=== PATIENT | female | born 1925 | race Caucasian/White ===

== ENCOUNTER 2016-08-30 11:43 | Emergency (ER) | payer MEDICARE, MEDICAID ==
[~2016-08-30] VITALS: Ht 154.9 cm; Wt 65.8 kg
[2016-08-30] MEDS ORDERED: TDAP [DIPH/PERTUSSIS/TET] 0.5 ML VIAL IM ONE ×2 (12:21→12:30)
[2016-08-30 12:38] VITALS: BP 138/82
== END 2016-08-30 12:39 | disposition home or self-care (01) ==
LOC: ER 11:46
DX: S61.213A Laceration without foreign body of left middle finger without damage to nail, initial encounter (principal); E11.9 Type 2 diabetes mellitus without complications; I10 Essential (primary) hypertension; W26.0XXA Contact with knife, initial encounter; Y93.89 Activity, other specified; Y99.8 Other external cause status; Y92.090 Kitchen in other non-institutional residence as the place of occurrence of the external cause
CPT/HCPCS: 90715; A4606; Z7610

== ENCOUNTER 2016-09-26 13:11 | Inpatient (IN) | payer MEDICARE, MEDICAID ==
[~2016-09-26] VITALS: Ht 157.5 cm; Wt 71.7 kg
--- NOTE | 2016-09-26 13:11 | NUR ---
BBRA FROM HOME FOR CP BURNING X 2 DAYS ON AND OFF. NAD NOTED. PT NIGERIAN SPEAKER, AAO X4, AMB WITH STEADY GAIT. PT PLACED ON O2, SATTING WELL AT 98%. PT PLACED IN GOWN AND MONITOR. EKG AT BEDSIDE. AT BEDSIDE FOR EVAL.
--- NOTE | 2016-09-26 13:21 | NUR ---
CALLED NURSING SUP. FOR TELE BED
[2016-09-26 13:31] LABS: BASOPHILS # (AUTO) 0.4 /CMM (0.0-0.2); BASOPHILS % (AUTO) 2.6 % (0.0-2.0); EOSINOPHILS # (AUTO) 0.2 /CMM (0.0-0.7); HEMATOCRIT 34 % (33-45); HEMOGLOBIN 11.3 g/dL (11.5-14.8); LYMPHOCYTES # (AUTO) 1.9 /CMM (0.8-4.8); LYMPHOCYTES % (AUTO) 11.1 % (20.0-44.0); MEAN CORPUSCULAR HEMOGLOBIN 24 PG (26.0-33.0); MEAN CORPUSCULAR HGB CONC 33 g/dl (31.0-36.0); MEAN CORPUSCULAR VOLUME 73 fL (82-100); MONOCYTES # (AUTO) 1.1 /CMM (0.1-1.30); MONOCYTES % (AUTO) 6.6 % (2.0-12.0); NEUTROPHILS # (AUTO) 13.2 /CMM (1.8-8.9); NEUTROPHILS % (AUTO) 78.7 % (43.0-81.0); RDW COEFFICIENT OF VARIATION 24.4 (11.5-15.0); RED BLOOD CELL COUNT(AUTO) 4.69 MIL/uL (4.0-5.2); WHITE BLOOD COUNT (AUTO) 16.8 K/uL (4.3-11.0)
[2016-09-26 13:39] LABS: CALCIUM, SERUM 8.4 mg/dL (8.5-10.1); CARBON DIOXIDE 25 mmol/L (21-32); CHLORIDE 91 mmol/L (98-107); CREATININE 1.1 mg/dL (0.6-1.3); GLUCOSE 136 mg/dL (74-106); POTASSIUM 4.5 mmol/L (3.5-5.1); SODIUM SERUM 123 mmol/L (136-145); UREA NITROGEN, BLOOD 22 mg/dL (7-18)
[2016-09-26 13:43] LABS: INR 1.05 (0.87-1.13); PROTHROMBIN TIME 10.9 SECS (9.5-12.7)
[2016-09-26 13:47] LABS: TROPONIN I < 0.017 ng/mL (0.00-0.056)
[2016-09-26 13:48] LABS: PLATELET COUNT (AUTO) 1233 /CMM (150-450)
[2016-09-26] MEDS ORDERED: IV NS 0.9% 1,000 ML IV ONE (14:20)
[2016-09-26] MEDS ORDERED: CEFTRIAXONE 1GM BAG (ER ONLY) 50 ML IV ONE ×2 (14:28→14:30)
[2016-09-26] MEDS ORDERED: methylPREDNISolone SOD SUCC 125 MG/2ML VIAL ONE (14:28)
[2016-09-26] MEDS ORDERED: IV NS 0.9% 1,000 ML ONE (14:28)
[2016-09-26] MEDS ORDERED: IV SET PRIMARY 1 EA INFUS.SET MC ONE (14:28)
[2016-09-26] MEDS ORDERED: IV SET PRIMARY PUMP SET 1 EA INFUS.SET MC ONE ×2 (14:29→14:59)
[2016-09-26] MEDS ORDERED: methylPREDNISolone SOD SUCC 125 MG/2ML VIAL IV ONE (14:30)
[2016-09-26] MEDS ORDERED: IPRATROPIUM NEB FS 0.5 MG/2.5 ML AMPUL.NEB NEB ONE (14:30)
[2016-09-26] MEDS ORDERED: ALBUTEROL FS 2.5 MG/3 ML VIAL.NEB NEB ONE (14:30)
[2016-09-26] MEDS ORDERED: FUROSEMIDE 40 MG/4 ML VIAL IV ONE (14:30)
[2016-09-26] MEDS ORDERED: AZITHROMYCIN 500 MG in IV D5W 250 ML IV ONE (14:30)
[2016-09-26] MEDS ORDERED: FUROSEMIDE 40 MG/4 ML VIAL ONE (14:35)
--- NOTE | 2016-09-26 14:37 | NUR ---
CALLED RT FOR BREATHING TREATMENT
[2016-09-26 14:39] LABS: LYMPHOCYTES % (MANUAL) 6 % (16-48); MONOCYTES % (MANUAL) 7 % (0-11.0); NEUTROPHILS % (MANUAL) 87 (42-76)
[2016-09-26 14:40] LABS: ANISOCYTOSIS 1+
[2016-09-26 14:41] LABS: PLATELET ESTIMATE INCREASED
[2016-09-26] MEDS ORDERED: ALBUTEROL FS 2.5 MG/3 ML VIAL.NEB ONE (14:41)
[2016-09-26] MEDS ORDERED: IPRATROPIUM NEB FS 0.5 MG/2.5 ML AMPUL.NEB ONE (14:41)
[2016-09-26] MEDS ORDERED: EZET10TA27 PO (14:43)
[2016-09-26] MEDS ORDERED: OLME40TA3 PO (14:43)
[2016-09-26] MEDS ORDERED: FERR325T28 PO (14:43)
[2016-09-26] MEDS ORDERED: ACET-868 PO (14:43)
[2016-09-26] MEDS ORDERED: DULO60CA45 PO (14:43)
[2016-09-26] MEDS ORDERED: ASPI-991 PO (14:43)
[2016-09-26] MEDS ORDERED: [UNRECOGNIZED DRUG - CODE] PO (14:43)
[2016-09-26] MEDS ORDERED: HYDR500C2 PO (14:43)
[2016-09-26] MEDS ORDERED: BUDE10.2 IH (14:43)
[2016-09-26] MEDS ORDERED: SITA1TAB2 PO (14:43)
[2016-09-26] MEDS ORDERED: LABE200T PO (14:43)
[2016-09-26] MEDS ORDERED: AZEL137S7 NS (14:43)
[2016-09-26] MEDS ORDERED: ISRA5CAP PO (14:43)
[2016-09-26] MEDS ORDERED: ZOLP10TA2 PO (14:43)
--- NOTE | 2016-09-26 15:26 | NUR ---
REPORT GIVEN TO ROSA JAMISON FOR JOSE
[2016-09-26] MEDS ORDERED: IV D5W 1,000 ML IV PRN (15:59)
[2016-09-26 16:00] VITALS: BP 160/93
[2016-09-26] MEDS ORDERED: ZOLPIDEM TARTRATE 5 MG TABLET PO PRN (16:00)
[2016-09-26] MEDS ORDERED: HYDROCODONE/APAP 5/325MG 1 EACH TABLET PO PRN (16:00)
[2016-09-26] MEDS ORDERED: ENOXAPARIN SODIUM 40 MG/0.4 ML DISP.SYRIN SQ SCH (16:00)
[2016-09-26] MEDS ORDERED: ONDANSETRON HCL/PF 4 MG/2 ML VIAL IVP PRN (16:00)
[2016-09-26] MEDS ORDERED: MAG HYDROX/AL HYDROX/SIMETH 30 ML UDC PO PRN (16:00)
[2016-09-26] MEDS ORDERED: MAGNESIUM HYDROXIDE 30 ML UDC PO PRN (16:00)
[2016-09-26] MEDS ORDERED: ACETAMINOPHEN 325 MG TABLET PO PRN (16:00)
[2016-09-26] MEDS ORDERED: MORPHINE SULFATE INJ 2 MG/ML DISP.SYRIN IV PRN (16:00)
[2016-09-26] MEDS ORDERED: Z GUARD REMEDY 2 OZ OINT TP PRN (16:00)
[2016-09-26 16:30] VITALS: BP 160/93
[2016-09-26] MEDS ORDERED: GUAIFENESIN/D-METHORPHAN HB 5 ML UDC PO PRN (16:30)
[2016-09-26] MEDS ORDERED: ALBUTEROL FS 2.5 MG/3 ML VIAL.NEB NEB PRN (16:30)
[2016-09-26] MEDS ORDERED: AZITHROMYCIN 250 MG TABLET PO SCH (16:30)
--- NOTE | 2016-09-26 16:30 | NUR ---
ADMITTED FROM ER. PT. AWAKE, ALERT AND ORIENTED X4. COMPLAINTS OF CHEST WALL PAIN AND SOB. O2 @ 3L VIA NC. SAO2 95%. CRACKLES AND WHEEZING IN LUNG. APPLIED TELE MONITOR. SR & PVCS. CHECKED BLOOD SUGAR. IT WAS 168. SKIN IS INTACT. BSC AT THE BEDSIDE. GIVEN UNIT ORIENTATION TO THE PT AND FAMILY. SIDE RAILS UP. CALL LIGHT WITHIN REACH. MONITOR CLOSELY. Addendum: 09/26/16 at 1750 by DANILO FREEDMAN RN NOTED BLE EDEMA.
[2016-09-26] MEDS ORDERED: ENOXAPARIN SODIUM 30 MG/0.3 ML DISP.SYRIN SQ SCH ×2 (17:00)
--- NOTE | 2016-09-26 17:00 | NUR ---
COLLECTED URINE SAMPLE. CALLED LAB.
[2016-09-26] MEDS: METHOCARBAMOL (750MG) 750 MG TABLET PO SCH (17:44)
[2016-09-26] MEDS: FERROUS SULFATE (325 MG) 325 MG/TAB TABLET PO SCH (17:44)
[2016-09-26] MEDS: LABETALOL HCL (100MG) 100 MG TABLET PO SCH (17:46)
--- NOTE | 2016-09-26 18:30 | NUR ---
CLOSING SHIFT PT. AWAKE, ALERT AND ORIENTED X4. COMPLAINTS OF SOB. O2@ 3L VIA NC. SR& PVC ON THE MONITOR. BSC WITH ASSIST. URINE OUTPUT WAS 1000CC SINCE ADMISSION. HIGH BP, TOOK MEDS. HOB. SIDE RAILS UP. CALL LIGHT WITHIN REACH. MONITOR CLOSELY.
[2016-09-26 18:41] LABS: APPEARANCE,URINE CLEAR (CLEAR); BILIRUBIN,URINE NEGATIVE (NEGATIVE); BLOOD, URINE NEGATIVE Ery/uL (NEGATIVE); KETONES,URINE NEGATIVE (NEGATIVE); LEUKOCYTE ESTERASE ,URINE NEGATIVE (NEGATIVE); NITRITE, URINE NEGATIVE (NEGATIVE); PH,URINE 5.5 (5.0-8.0); PROTEIN,URINE NEGATIVE (NEGATIVE); UGLUCOSE NEGATIVE (NEGATIVE); UROBILINOGEN,URINE 0.2 EU/dL (0.2)
[2016-09-26 18:46] LABS: URINE SODIUM, RANDOM 67 mmol/l (40-220)
[2016-09-26 18:55] LABS: COLOR,URINE STRAW (YELLOW)
--- NOTE | 2016-09-26 19:00 | NUR ---
RN NOTE RECEIVED REPORT. PT AAOX3, EMIRATI SPEAKING. NO S/S OF RESPIRATORY DISTRESS AT THIS TIME. ON NC O2 @ 4L. DENIES SOB/CP. TELE SHOWING SR WITH BBB AND PVC'S. R AC INTACT AND PATENT. DTR AT BEDSIDE. CALL LIGHT IN REACH, WILL CONT TO MONITOR.
[2016-09-26 19:22] LABS: ALBUMIN 3.3 g/dL (3.4-5.0); BILIRUBIN,DIRECT 0.2 mg/dL (0.0-0.2); BILIRUBIN,TOTAL 0.9 mg/dL (0.2-1.0)
--- NOTE | 2016-09-26 19:30 | NUR ---
SPOKE WITH DR. KATELYN HERRERA REGARDING BONE MARROW BX FOR TOMORROW. ALSO WANTS TO GIVE HYDREA TODAY NALINI. CALLED PHARMACY, BUT NOBODY ANSWER. ENDORSED TO STEPHEN JAMISON. HE WILL CONTACT BLADE GRADER OPERATOR.
[2016-09-26 19:34] LABS: THYROID STIMULATING HORMONE 1.336 uIU/mL (0.358-3.74)
[2016-09-26 19:45] LABS: C-REACTIVE PROTEIN 6.3 mg/dL (0.0-0.9)
[2016-09-26 20:00] VITALS: BP 160/87
[2016-09-26 20:35] LABS: OSMOLALITY,URINE 227 mOS/kg (340-1090)
[2016-09-26] MEDS ORDERED: HYDROXYUREA 500 MG CAPSULE ONE (21:16)
[2016-09-26] MEDS ORDERED: ALLOPURINOL 100 MG TABLET ONE (21:17)
--- NOTE | 2016-09-26 21:30 | NUR ---
RN NOTE HYDREA PER MD ORDER GIVE 3,000 MG PO STAT ONCE. PT REFUSED 2,000 MG OF HYDREA. ONLY 2 TABLETS - 1,000 MG SHE ACCEPTED. PER PT AND HER DTR LINDA, SHE WANTS TO START ONLY TAKING 500 MG AT FIRST. TEACHING AND ENCOURAGEMENT PROVIDED X3.
[2016-09-26] MEDS: ALLOPURINOL 100 MG TABLET PO SCH (21:35)
[2016-09-27] VITALS: BP 166/94
--- NOTE | 2016-09-27 01:50 | NUR ---
RN NOTE PER PT, SHE HAD BM WITH BLOOD ON TOILET PAPER. INSTRUCTED TO INFORM NURSE BEFORE DISPOSING SO WE CAN GET A SAMPLE FOR TESTING. WILL CONT TO MONITOR
[2016-09-27] MEDS: hydrALAZINE HCL 25 MG TABLET PO PRN ×2 (01:52→05:28)
--- NOTE | 2016-09-27 02:28 | NUR ---
RN NOTE MD AWARE OF ELEVATED BP. ORDERS CARRIED OUT. APRESOLINE 25 MG GIVEN STAT ONCE.
[2016-09-27 04:00] VITALS: BP 174/87
[2016-09-27] MEDS ORDERED: hydrALAZINE HCL 25 MG TABLET ONE (05:22)
[2016-09-27] MEDS ORDERED: hydrALAZINE HCL 25 MG TABLET PO ONE (05:30)
[2016-09-27] MEDS ORDERED: PANTOPRAZOLE 40 MG TABLET.DR PO SCH (07:30)
--- NOTE | 2016-09-27 07:30 | NUR ---
CAGE MAKER MACHINE AM NOTES PT IN BED, ALERT AND ORIENTED X4, ARMENIAN SPEAKING, ON 3L O2, VIA NC. SAO2 95%. HARSH BREATH SOUNDS. NO C/O CHEST PAIN/DISCOMFORT, TELEMETRY READS SR + BBB HR 90. RT AC G18 IVHL, FLUSHES WELL, SITE CLEAR, SKIN IS INTACT. BSC AT THE BEDSIDE. NOTED BLE EDEMA +1. SIDE RAILS UP. CALL LIGHT WITHIN REACH. WILL MONITOR CLOSELY.
[2016-09-27 08:00] VITALS: BP 193/88
[2016-09-27 08:00] LABS: BASOPHILS % (AUTO) 0.1 % (0.0-2.0); EOSINOPHILS # (AUTO) 0.1 /CMM (0.0-0.7); EOSINOPHILS % (AUTO) 0.5 % (0.0-6.0); HEMATOCRIT 35 % (33-45); HEMOGLOBIN 11.2 g/dL (11.5-14.8); LYMPHOCYTES # (AUTO) 0.9 /CMM (0.8-4.8); LYMPHOCYTES % (AUTO) 6.3 % (20.0-44.0); MEAN CORPUSCULAR HEMOGLOBIN 24 PG (26.0-33.0); MEAN CORPUSCULAR HGB CONC 32 g/dl (31.0-36.0); MEAN CORPUSCULAR VOLUME 74 fL (82-100); MONOCYTES # (AUTO) 0.2 /CMM (0.1-1.30); MONOCYTES % (AUTO) 1.3 % (2.0-12.0); NEUTROPHILS # (AUTO) 12.7 /CMM (1.8-8.9); NEUTROPHILS % (AUTO) 91.8 % (43.0-81.0); RDW COEFFICIENT OF VARIATION 26.8 (11.5-15.0); RED BLOOD CELL COUNT(AUTO) 4.71 MIL/uL (4.0-5.2); WHITE BLOOD COUNT (AUTO) 13.8 K/uL (4.3-11.0)
[2016-09-27 08:18] LABS: PLATELET COUNT (AUTO) 1380 /CMM (150-450)
[2016-09-27 08:22] LABS: CALCIUM, SERUM 8.9 mg/dL (8.5-10.1); PHOSPHORUS 3.8 mg/dL (2.5-4.9); POTASSIUM 4.1 mmol/L (3.5-5.1)
[2016-09-27] MEDS: FERROUS SULFATE (325 MG) 325 MG/TAB TABLET PO SCH (08:41)
[2016-09-27] MEDS: METHOCARBAMOL (750MG) 750 MG TABLET PO SCH (08:41)
[2016-09-27] MEDS: ALLOPURINOL 100 MG TABLET PO SCH (08:41)
[2016-09-27] MEDS: LABETALOL HCL (100MG) 100 MG TABLET PO SCH (08:42)
[2016-09-27] MEDS ORDERED: HYDROXYUREA 500 MG CAPSULE PO SCH ×3 (09:00)
[2016-09-27] MEDS ORDERED: DULOXETINE HCL 30 MG CAPSULE.DR PO SCH (09:00)
[2016-09-27] MEDS ORDERED: ASPIRIN EC 81 MG TABLET.DR PO SCH (09:00)
[2016-09-27] MEDS ORDERED: ISRADIPINE 5 MG PO SCH (09:00)
[2016-09-27] MEDS ORDERED: EZETIMIBE 10 MG TABLET PO SCH (09:00)
[2016-09-27] MEDS ORDERED: FLUTICASONE/SALMETEROL DISKUS IH SCH (09:00)
--- NOTE | 2016-09-27 09:03 | NUR ---
PUMP ROOM OPERATOR NOTES PATIENT AND PT'S DAUGHTER AWARE REFUSE TO TAKE MORNING MEDICATION DESPITE INSTRUCTIONS, EDUCATIONS AND TEACHINGS.
--- NOTE | 2016-09-27 09:30 | NUR ---
RN NOTES PATIENT TOOK HER MEDICATIONS WITH DAUGHTER AT BEDSIDE.
[2016-09-27] MEDS ORDERED: FUROSEMIDE 40 MG/4 ML VIAL IV SCH (10:30)
[2016-09-27] MEDS ORDERED: PREG50CA PO (10:38)
[2016-09-27] MEDS ORDERED: CLON0.5T23 PO (10:38)
[2016-09-27] MEDS ORDERED: AMIT10TA6 PO (10:38)
[2016-09-27] MEDS ORDERED: FURO20TA4 PO (10:38)
[2016-09-27] MEDS ORDERED: CAPT25TA3 PO (10:38)
--- NOTE | 2016-09-27 11:00 | NUR ---
RN NOTES BP RE CHECKED 148/78. HR 70. DR. CERRATO AWARE.
[2016-09-27 11:07] LABS: THYROID STIMULATING HORMONE 0.445 uIU/mL (0.358-3.74)
[2016-09-27] MEDS ORDERED: HYDR500C PO (11:29)
[2016-09-27] MEDS ORDERED: FURO-144 PO (11:29)
[2016-09-27 12:20] VITALS: BP 148/78
--- NOTE | 2016-09-27 12:26 | NUR ---
RN NOTES PATIENT DISCHARGED TO HOME PER MD IN STABLE CONDITION. PROVIDED DC INSTRUCTIONS, HELAHT TEACHING, MED RECON LIST AND PRESCRIPTION. PATIENT TO FOLLOW UP WITH PCP IN 1-2 WEEKS AND WILL MAKE OWN APPOINTMENT. RT AC IV ACCESS REMOVED, NO BLEEDING, DRESSING IN PLACE. ALL BELONGINGS CHECKED AND RETURNED. ALL PAPERWORKS SIGNED. ACCOMPANIED BY DAUGHTER AND THIS RN TO LOBBY VIA WHEELCHAIR WILL BE TRANSPORTED BY DAUGHTER TO HOME VIA PRIVATE CAR.
[2016-09-27 12:42] LABS: HYPOCHROMASIA 1+; LYMPHOCYTES % (MANUAL) 6 % (16-48); MONOCYTES % (MANUAL) 2 % (0-11.0); NEUTROPHILS % (MANUAL) 92 (42-76); PLATELET ESTIMATE INCREASED
[2016-09-27 12:43] LABS: ANISOCYTOSIS 1+
[2016-09-27] MEDS ORDERED: SOD FERRIC GLUC 125 MG in IV NS 0.9% 100 ML IV SCH (14:00)
[2016-09-27] MEDS ORDERED: CEFTRIAXONE 1 G in IV D5W 50 ML IV SCH (15:00)
[2016-09-27] MEDS ORDERED: AZITHROMYCIN 500 MG in IV D5W 250 ML IV SCH (16:00)
[2016-09-27] MEDS ORDERED: BENICAR PO SCH (22:00)
== END 2016-09-27 12:25 | disposition home or self-care (01) | DRG 291 ==
LOC: ER 13:13 → TELE 15:49 → MED 09-27 10:45
PROVIDERS: ADMIT Internal Medicine; ATTEND Internal Medicine
DX: I50.23 Acute on chronic systolic (congestive) heart failure (principal); J96.01 Acute respiratory failure with hypoxia; E87.1 Hypo-osmolality and hyponatremia; E46 Unspecified protein-calorie malnutrition; J44.1 Chronic obstructive pulmonary disease with (acute) exacerbation; E78.5 Hyperlipidemia, unspecified; J06.9 Acute upper respiratory infection, unspecified; D75.89 Other specified diseases of blood and blood-forming organs; F32.9 Major depressive disorder, single episode, unspecified; E66.9 Obesity, unspecified; I11.0 Hypertensive heart disease with heart failure; I16.0 Hypertensive urgency; D50.9 Iron deficiency anemia, unspecified
CPT/HCPCS: 36415; 71010-TC; 80048-TC; 80061-TC; 80076-TC; 81000-TC; 82728-TC; 82746; 82962-TC; 83540-TC; 83605-TC; 83735-TC; 83880; 83935-TC; 84100-TC; 84300-TC; 84439-TC; 84443-TC; 84484-TC; 85025-TC; 85730-TC; 86140-TC; 86431-TC; 87040-TC; 87081-TC; 87086-TC; 93307-TC; A4606; J0456; J0696; J1650; J1940; J2916; J2930; J7030; J7060; Z7610